=== PATIENT | female | born 1985 | race Caucasian/White ===

== ENCOUNTER 2019-03-03 11:51 | Emergency (ER) | payer MEDICAID ==
[~2019-03-03] VITALS: Ht 167.6 cm; Wt 113.4 kg
[2019-03-03] MEDS ORDERED: Catapres0.3 MG PO (12:02)
[2019-03-03] MEDS ORDERED: ONDA4ODT MM (12:02)
== END 2019-03-03 12:16 | disposition home or self-care (01) ==
LOC: ER 11:51
DX: F41.9 Anxiety disorder, unspecified (principal); R11.0 Nausea; F17.200 Nicotine dependence, unspecified, uncomplicated; Z79.899 Other long term (current) drug therapy
CPT/HCPCS: 99281